=== PATIENT | male | born 1955 | race Caucasian/White ===

== ENCOUNTER 2016-12-02 10:19 | Day surgery (SDC) | payer OTHER ==
[~2016-12-02] VITALS: Ht 188 cm; Wt 112.0 kg
[~2016-12-02 10:19] MED LIST: 0.9% Sodium Chloride 1,000 ML IV SCH; OLME5TAB3 PO; Sodium Chloride LOK Flush 10 mL Syringe IV PRN; fentaNYL-PF 50 mCg/mL 2 mL Inj IVPUSH PRN
[2016-12-02 10:46] VITALS: BP 150/88; PULSE 74; RESP 14; O2SAT 98
[2016-12-02] MEDS ORDERED: FLUT15.88 NS (10:46)
[2016-12-02] MEDS ORDERED: LIP40 PO (10:46)
[2016-12-02] MEDS: 0.9% Sodium Chloride 1,000 ML IV SCH ×2 (11:45→11:50)
--- NOTE | 2016-12-02 12:06 | PCM.ENDCOL ---
Colonoscopy Date of Service: Dec 02, 2016 Physician Juan Hyde MD Pre Procedure Diagnosis: History of polyps Post Procedure Dx & Findings: Polyp hemorrhoids diverticuli Procedure Colonoscopy PROCEDURE IN DETAIL: Prep adequate Withdrawal time 15 minutes After unremarkable rectal examination the Olympus video colonoscope was inserted patient's anal canal and was advanced to cecum. Landmarks were identified including the ileocecal valve and appendiceal orifice. Scope was withdrawn systematically. Visualized colonic mucosa showed healthy shiny mucosa with normal healthy-appearing vasculature. In the cecum, there was a 1 mm polyp which was removed completely using cold forceps. In the descending colon there was a 2 mm polyp which was removed completely using cold snare. In the rectum there was a 1 mm polyp which was removed completely using cold forceps. In the sigmoid colon there are multiple medium-sized diverticuli. In the rectum retroflexion was done which showed hemorrhoids. Anal canal was inspected carefully on the way out and hemorrhoids noted. Impression Polyp 3 status post complete removal Diverticuli History of polyps Hemorrhoids Recommendation Repeat colonoscopy 3 years Diverticular diet Presedation Assessment Risks and Benefits Informed consent was obtained from the patient after all risks and benefits including but not limited to drug reaction, infection, pain, bleeding, perforation, as well as alternatives were discussed. Patient monitoring Continuous pulse oximetry, cardiac monitoring, blood pressure monitoring, IV access, and oxygen at 2L per nasal cannula. Periprocedural Fentanyl: Fentanyl 100mcg Incrementally Midazolam: Midazolam 5mg Incrementally Complications There were no periprocedural complications identified. Post Procedure Plan Post Procedure Recommendations 1. Restrict activities today. 2. Resume normal activities in the morning. 3. Resume medications. 4. Patient informed of normal post procedure side effects as bloating, drowsiness, blood streaking in the stool. 5. average risk CRCS. If colon polyps come back as: -Hyperplastic- can repeat colonoscopy in 10 years -Tubular adenoma- repeat colonoscopy in 5 years -Tubulovillous/villous adenoma- repeat colonoscopy in 3 years -If any dysplasia- return to clinic as soon as possible 6. Please don't hesitate to call me with any questions. Juan Hyde MD Dec 02, 2016 12:06
[2016-12-02 12:11] VITALS: BP 106/71; PULSE 62; RESP 16; O2SAT 95
[2016-12-02 12:26] VITALS: BP 106/68; PULSE 62; RESP 16; O2SAT 95
--- NOTE | 2016-12-04 18:44 | PATH ---
SURGICAL PATHOLOGY Attending Physician:Juan Hyde M.D. CASE STATUS: Signed Out PATIENT NAME: HIEN ANTOINE PID: [id number] : 1955 DATE COLLECTED:12/02/2016 20:33 SPECIMEN: 1: Colon, Biopsy 2: Colon, Biopsy 3: Rectum, Biopsy CLINICAL HISTORY: HX ADENOMA POLYP COLON POLYPS 1). CECAL POLYP 2). DESCENDING COLON POLYP 3). RECTAL POLYP FINAL DIAGNOSIS: 1. Cecum, Polyp, Biopsy: Superficial portions of colorectal mucosa x2 with rare lymphoid aggregates, focal hyperplastic mucosal changes, and otherwise, no significant histomorphologic abnormality. 2. Descending Colon, Polyp, Biopsy: Tubular adenoma; negative for high-grade dysplasia. 3. Rectum, Polyp, Biopsy: Hyperplastic polyps. ICD10: K63.5 GROSS DESCRIPTION: The specimen is received in three formalin filled containers labeled with the patient's name. 1). The specimen is sublabeled "cecal polyp" and consists of 2 portions of tissue which aggregate to 0.3 x 0.3 x 0.3 CM. The specimen is entirely submitted in cassette 1A. 2). The specimen is sublabeled "descending colon polyp" and consists of a 0.4 x 0.4 x 0.3 CM portion of tissue which is entirely submitted in cassette 2A. 3). The specimen is sublabeled "rectal polyp" and consists of a 0.2 x 0.2 x 0.2 CM portion of tissue which is entirely submitted in cassette 3A. 12/02/2016 [facility] ICD-9 CODES: CPT CODES: 1: 77757 2: 91562 3: 94998 Electronically Signed Out Iris Gomes MD [facility] Pathology [facility] [address], [place] [address] Technical component performed at [facility], [facility] [address], [place], [address]
== END 2016-12-02 23:59 | disposition home or self-care (01) ==
LOC: END 10:19
PROVIDERS: ATTEND Internal Medicine
DX: Z12.11 Encounter for screening for malignant neoplasm of colon (principal); D12.4 Benign neoplasm of descending colon; K63.5 Polyp of colon; K62.1 Rectal polyp; K57.30 Diverticulosis of large intestine without perforation or abscess without bleeding; K64.8 Other hemorrhoids; Z86.010 Personal history of colon polyps; I10 Essential (primary) hypertension; E78.5 Hyperlipidemia, unspecified
CPT/HCPCS: 45380; 45385; G0500; J2250; J3010; J7030